=== PATIENT | male | born 1975 | race Caucasian/White ===

== ENCOUNTER 2021-12-22 11:55 | Emergency (ER) | payer BC ==
[~2021-12-22] VITALS: Ht 180.3 cm; Wt 109.1 kg
[2021-12-22 12:10] VITALS: TEMP 98.3
[2021-12-22] MEDS ORDERED: LIPITOR 10MG10 MG PO (12:33)
[2021-12-22] MEDS ORDERED: RYBELSUS14 MG PO (12:33)
[2021-12-22] MEDS ORDERED: GLUCOPHAGE1000 MG PO (12:33)
[2021-12-22] MEDS ORDERED: ZOFRAN ODT4 MG PO (12:45)
[2021-12-22 12:52] VITALS: BP 122/90; PULSE 100
== END 2021-12-22 12:59 | disposition home or self-care (01) ==
LOC: COL.ER 11:55
DX: U07.1 COVID-19 (principal); E11.9 Type 2 diabetes mellitus without complications; E78.5 Hyperlipidemia, unspecified; Z79.4 Long term (current) use of insulin; Z79.899 Other long term (current) drug therapy